=== PATIENT | female | born 1970 | race Caucasian/White ===

== ENCOUNTER 2017-09-08 06:18 | Day surgery (SDC) | payer OTHER ==
[~2017-09-08] VITALS: Ht 157.5 cm; Wt 63.0 kg
[~2017-09-08 06:18] MED LIST: BUPR150T2 PO
[2017-09-08] MEDS ORDERED: PSEU120ER PO (06:55)
[2017-09-08] MEDS ORDERED: IBUP400 PO (06:55)
[2017-09-08] MEDS ORDERED: NASACORT10.8 ML (06:56)
[2017-09-08] MEDS ORDERED: Excedrin Extra1 EACH PO (06:56)
[2017-09-08] MEDS ORDERED: QNASL8.7 GM INH (06:58)
[2017-09-08] MEDS ORDERED: ALBU90OI (06:58)
[2018-06-08] MEDS ORDERED: MONT4 PO (17:47)
[2018-06-08] MEDS ORDERED: CRUTCH4 XX (18:28)
[2018-06-08] MEDS ORDERED: Norco 5-325 Ta1 EACH PO (18:28)
== END 2017-09-08 08:42 | disposition home or self-care (01) ==
LOC: ORSCSDS 06:18
DX: M20.5X2 Other deformities of toe(s) (acquired), left foot (principal); M20.5X1 Other deformities of toe(s) (acquired), right foot; J45.909 Unspecified asthma, uncomplicated; Z79.899 Other long term (current) drug therapy
CPT/HCPCS: J0171; J0690; J1100; J1885; J2250; J2405; J3010; J7120

== ENCOUNTER 2018-11-28 06:46 | Day surgery (SDC) | payer OTHER ==
[~2018-11-28] VITALS: Ht 157.5 cm; Wt 62.2 kg
[~2018-11-28 06:46] MED LIST changes: +ALBU90OI; +Adipex-P37.5 M1 PO; +CRUTCH4 XX; +Excedrin Extra1 EACH PO; +IBUP400 PO; +IBUPROFEN200 MG PO; +MONT4 PO; +NASACORT10.8 ML; +Norco 5-325 Ta1 EACH PO; +PSEU120ER PO; +QNASL8.7 GM INH; +Sudogest60 MG PO
[2018-11-28] MEDS ORDERED: ACET325 (07:41)
[2018-11-28] MEDS ORDERED: Excedrin Extra1 EACH (07:41)
--- NOTE | 2018-11-28 08:07 | NUR ---
11/28/18 0807 Paulina Neely FIRST IV ATTEMPT IN RIGHT HAND INFILTATED. SECOND ATTEMPT IN RIGHT AC WAS SUCCESSFUL AND TOLERATED WELL. BOTH BY [facility].RCL
== END 2018-11-28 09:40 | disposition home or self-care (01) ==
LOC: ORSCSDS 06:46
PROVIDERS: Internal Medicine Gastroenterology
PROC: 0DBP8ZX Excision of Rectum, Via Natural or Artificial Opening Endoscopic, Diagnostic (ICD-10-PCS; principal; 2018-11-28 08:45)
DX: Z12.11 Encounter for screening for malignant neoplasm of colon (principal); K62.1 Rectal polyp; K57.30 Diverticulosis of large intestine without perforation or abscess without bleeding; J45.909 Unspecified asthma, uncomplicated; Z79.899 Other long term (current) drug therapy
CPT/HCPCS: 88305; J2704; J7120